=== PATIENT | female | born 1990 | race Caucasian/White ===

== ENCOUNTER 2018-03-18 01:36 | Emergency (ER) | payer MEDICAID, OTHER ==
[~2018-03-18] VITALS: Ht 154.9 cm; Wt 86.9 kg
[~2018-03-18 01:36] MED LIST: FERR-43 PO; PRENATAL
[2018-03-18] MEDS ORDERED: CARBAMIDE PEROXIDE 6.5% OTIC SOLN 15ML LEFT EAR ONE (03:00)
[2018-03-18] MEDS ORDERED: TETRACAINE 0.5% OPHTH DROPS 4ML BOTHEYE ONE (03:00)
[2018-03-18 04:03] VITALS: BP 127/75
== END 2018-03-18 04:05 | disposition home or self-care (01) ==
LOC: ER 01:36
DX: H61.22 Impacted cerumen, left ear (principal)
CPT/HCPCS: 69210; 99283; 99284

== ENCOUNTER 2019-09-05 21:02 | Emergency (ER) | payer SELFPAY ==
[~2019-09-05] VITALS: Ht 154.9 cm; Wt 82.2 kg
[2019-09-06 01:15] LABS: CHLORIDE 101 mEq/L (98-107)
[2019-09-06 01:36] LABS: BASOPHILS % 0.8 % (0.0-2.0); EOSINOPHILS % 2.5 % (0.0-5.0); HEMATOCRIT. 46.9 % (36.0-48.0); HEMOGLOBIN. 16.1 g/dL (12.0-16.0); LYMPHOCYTES % 28.7 % (20.0-50.0); MEAN CORPUSCULAR VOLUME 93.6 fL (81.0-99.0); MEAN PLATELET VOLUME 10.5 fl (7.4-10.4); MONOCYTES % 7.9 % (2.0-8.0); NEUTROPHILS % 60.1 % (40.0-76.0); PLATELET 235 x1000/uL (130-400); RED BLOOD CELL COUNT 5.02 mill/uL (4.2-5.4); RED CELL DISTRIBUTION WIDTH 11.8 % (11.6-14.6)
[2019-09-06 01:46] LABS: CLARITY URINE CLOUDY (CLEAR); COLOR URINE YELLOW (YELLOW); KETONES URINE TRACE (NEGATIVE); LEUKOCYTE ESTERASE URINE 2+ (NEGATIVE); NITRITE URINE POSITIVE (NEGATIVE); OCCULT BLOOD URINE NEGATIVE (NEGATIVE); PROTEIN URINE TRACE (NEGATIVE); SPECIFIC GRAVITY URINE 1.028 (1.005-1.030)
[2019-09-06] MEDS ORDERED: CEFTRIAXONE 1 G PREMIX 50 ML IV ONE (03:00)
[2019-09-06 04:08] VITALS: BP 109/74
== END 2019-09-06 04:12 | disposition home or self-care (01) ==
LOC: ER 21:02
DX: N39.0 Urinary tract infection, site not specified (principal); R74.0 Nonspecific elevation of levels of transaminase and lactic acid dehydrogenase [LDH]; R73.9 Hyperglycemia, unspecified
CPT/HCPCS: 36415; 80053; 81003; 81025; 83690; 85025; 96365; 99283; J0696; Z7610